=== PATIENT | male | born 1975 | race Two or more races ===

== ENCOUNTER 2021-11-08 14:30 | Emergency (ER) | payer MEDICAID, OTHER ==
[~2021-11-08] VITALS: Ht 185.4 cm; Wt 81.6 kg
[2021-11-08] MEDS ORDERED: TETANUS-DIPTH-ACEL PERTUSSIS 0.5ML SYR Tdap IM ONE (14:45)
[2021-11-08 14:49] VITALS: BP 117/77
== END 2021-11-08 15:27 ==
LOC: EEVIPCON 14:30 → ER 14:30
DX: S60.415A Abrasion of left ring finger, initial encounter (principal); W54.0XXA Bitten by dog, initial encounter; Y93.89 Activity, other specified; Y92.89 Other specified places as the place of occurrence of the external cause; Y99.8 Other external cause status
CPT/HCPCS: 90471; 90715